=== PATIENT | male | born 1985 | race Caucasian/White ===

== ENCOUNTER 2018-02-27 14:01 | Emergency (ER) | payer OTHER | END 2018-02-27 14:17 | disposition home or self-care (01) | LOC: E/R 14:01 | DX: J20.9 Acute bronchitis, unspecified (principal); Z87.891 Personal history of nicotine dependence | CPT/HCPCS: 99283; Z7502 ==

== ENCOUNTER 2018-03-11 19:23 | Emergency (ER) | payer OTHER ==
[2018-03-11] MEDS: ONDANSETRON 4 MG INJ IV (19:51)
[2018-03-11] MEDS: SOD CHLORIDE 0.9% 1,000 ML IV ×2 (19:51)
[2018-03-11 20:24] LABS: ADD MAN DIFF? NO
[2018-03-11 20:27] LABS: ABNORMAL IP MESSAGE 1; BASOPHIL # 0.1 10^3/ul (0.0-0.1); BASOPHILS % 0.2 % (0.0-2.0); HEMATOCRIT 45.1 % (42.0-52.0); HEMOGLOBIN 15.2 g/dl (14.0-18.0); LYMPHOCYTES # 1.9 10^3/ul (0.8-2.9); LYMPHOCYTES % 8.1 % (15.0-51.0); MEAN CORPUSCULAR HGB CONC 33.7 g/dl (32.0-37.0); MEAN PLATELET VOLUME 10.4 fl (7.4-10.4); MONOCYTE # 0.7 10^3/ul (0.3-0.9); MONOCYTES % 2.9 % (0.0-11.0); NEUTROPHIL # 20.3 10^3/ul (1.6-7.5); PLATELET COUNT 295 10^3/UL (140-415); POSITIVE DIFF @See below; RED CELL DISTRIBUTION WIDTH 12.5 % (11.5-14.5)
[2018-03-11 20:47] LABS: ALANINE AMINOTRANSFERASE 29 IU/L (13-69); ALBUMIN/GLOBULIN RATIO 1.56; ALKALINE PHOSPHATASE 84 IU/L (42-121); ANION GAP 30 (8-16); ASPARTATE AMINO TRANSFERASE 33 IU/L (15-46); BLOOD UREA NITROGEN 15 mg/dl (7-20); CALCIUM 9.9 mg/dl (8.4-10.2); CARBON DIOXIDE 18 mmol/L (21-31); CHLORIDE 107 mmol/L (97-110); CREATININE 0.74 mg/dl (0.61-1.24); POTASSIUM 3.8 mmol/L (3.5-5.1); SODIUM 151 mmol/L (135-144); TOTAL PROTEIN 8.2 g/dl (6.1-8.1)
[2018-03-11 20:54] LABS: GLUCOSE 50 mg/dl (70-220)
[2018-03-11] MEDS ORDERED: SOD CHLORIDE 0.9% 100 ML (21:23)
[2018-03-11] MEDS ORDERED: IOHEXOL 300MG/ML 150 ML BTL (21:23)
[2018-03-11] MEDS: DEXTROSE 5%-0.9% NACL 1,000 ML IV (21:48)
== END 2018-03-11 23:54 | disposition home or self-care (01) ==
LOC: E/R 19:23
DX: K51.30 Ulcerative (chronic) rectosigmoiditis without complications (principal); R11.2 Nausea with vomiting, unspecified; E86.0 Dehydration; Z87.891 Personal history of nicotine dependence
CPT/HCPCS: 36415; 71045; 74177; 80053; 82962; 85025; 96374; 99285-25

== ENCOUNTER 2018-04-20 20:19 | Emergency (ER) | payer OTHER ==
[2018-04-21] MEDS: IBUPROFEN 600 MG TAB PO (02:39)
== END 2018-04-21 02:42 | disposition home or self-care (01) ==
LOC: FTE 20:19
DX: H61.23 Impacted cerumen, bilateral (principal); H66.91 Otitis media, unspecified, right ear; Z87.891 Personal history of nicotine dependence
CPT/HCPCS: 69209; 99283-25

== ENCOUNTER 2018-05-01 14:06 | Emergency (ER) | payer OTHER ==
[2018-05-01] MEDS: ONDANSETRON 4 MG INJ IV (15:26)
[2018-05-01] MEDS: SOD CHLORIDE 0.9% 1,000 ML IV (15:27)
[2018-05-01 15:36] LABS: ADD MAN DIFF? NO
[2018-05-01 15:40] LABS: BASOPHILS % 0.3 % (0.0-2.0); EOSINOPHILS % 0.1 % (0.0-7.0); HEMATOCRIT 45.1 % (42.0-52.0); HEMOGLOBIN 15.5 g/dl (14.0-18.0); LYMPHOCYTES # 2.4 10^3/ul (0.8-2.9); LYMPHOCYTES % 16.2 % (15.0-51.0); MEAN CORPUSCULAR HEMOGLOBIN 30.6 pg (29.0-33.0); MEAN CORPUSCULAR HGB CONC 34.4 g/dl (32.0-37.0); MEAN PLATELET VOLUME 9.5 fl (7.4-10.4); MONOCYTE # 0.7 10^3/ul (0.3-0.9); MONOCYTES % 4.5 % (0.0-11.0); NEUTROPHIL # 11.5 10^3/ul (1.6-7.5); NEUTROPHILS % 78.4 % (39.0-77.0); PLATELET COUNT 412 10^3/UL (140-415); RED BLOOD COUNT 5.07 10^6/ul (4.70-6.10); RED CELL DISTRIBUTION WIDTH 12.5 % (11.5-14.5)
[2018-05-01 15:40] LABS: WHITE BLOOD COUNT 14.6 10^3/ul (4.8-10.8)
[2018-05-01 15:59] LABS: ALANINE AMINOTRANSFERASE 30 IU/L (13-69); ALBUMIN 5.3 g/dl (3.3-4.9); ALBUMIN/GLOBULIN RATIO 1.55; ALKALINE PHOSPHATASE 73 IU/L (42-121); ANION GAP 24 (8-16); ASPARTATE AMINO TRANSFERASE 28 IU/L (15-46); BILIRUBIN,INDIRECT 1.4 mg/dl (0-1.1); BILIRUBIN,TOTAL 1.4 mg/dl (0.2-1.3); BLOOD UREA NITROGEN 12 mg/dl (7-20); CALCIUM 10.2 mg/dl (8.4-10.2); CARBON DIOXIDE 19 mmol/L (21-31); CHLORIDE 107 mmol/L (97-110); CREATININE 0.78 mg/dl (0.61-1.24); GLUCOSE 71 mg/dl (70-220); LIPASE 63 U/L (23-300); SODIUM 146 mmol/L (135-144); TOTAL PROTEIN 8.7 g/dl (6.1-8.1)
== END 2018-05-01 16:44 | disposition home or self-care (01) ==
LOC: FTE 14:06
DX: R11.10 Vomiting, unspecified (principal)
CPT/HCPCS: 36415; 80053; 83690; 85025; 96361; 96374; 99284-25